=== PATIENT | female | born 1940 | race Caucasian/White ===

== ENCOUNTER 2021-12-02 11:53 | Inpatient (IN) ==
[2021-12-02 13:07] LABS: Basophils # 0.1 K/mcL (0.0-0.2); Basophils % 0.6 %; Eosinophils # 0.2 K/mcL (0.0-0.6); Eosinophils % 1.8 %; Hematocrit 33.6 % (35.3-44.9); Hemoglobin 10.5 g/dL (11.5-15.4); Immature Granulocytes % 0.8 % (0-4); Lymphocytes % 10.2 %; Mean Corpuscular HGB Conc 31.3 g/dL (31.6-35.5); Mean Corpuscular Hemoglobin 29.2 pg (28.0-33.3); Mean Corpuscular Volume 93.3 fL (83.0-100.0); Mean Platelet Volume 10.9 fL (9.4-12.4); Monocytes # 0.8 K/mcL (0.0-1.3); Monocytes % 7.6 %; Neutrophils # 7.9 K/mcL (1.6-8.9); Platelet Count 329 K/mcL (140-400); Red Cell Distribution Width 13.9 % (11.5-14.5)
[2021-12-02 13:16] LABS: Bilirubin,Urine Negative (Negative); Blood,Urine Large (Negative); Clarity,Urine Turbid (Clear); Glucose,Urine (UA) Normal (Normal); Ketones,Urine Negative (Negative); Leukocyte Esterase,Urine Large (Negative); Nitrite,Urine Positive (Negative); Protein,Urine 100 mg/dL (Neg-Trace); Urobilinogen,Urine Normal (Normal)
[2021-12-02 13:16] LABS: INR 1.2; Prothrombin Time 13.5 Seconds (9.4-12.1)
[2021-12-02 13:26] LABS: Troponin I < 0.03 ng/mL (< 0.04)
[2021-12-02 13:27] LABS: Color,Urine Light Yellow (Yellow)
[2021-12-02 13:27] LABS: Alanine Aminotransferase 90 Units/L (7-52); Albumin 2.5 g/dL (3.5-5.7); Albumin/Globulin Ratio 0.7 (1.1-2.2); Alkaline Phosphatase 126 Units/L (34-104); Aspartate Amino Transferase 101 Units/L (13-39); BUN/Creatinine Ratio 24 (6-26); Bilirubin,Total 0.6 mg/dL (0.3-1.0); Blood Urea Nitrogen 25 mg/dL (8-23); Calcium 8.3 mg/dL (8.6-10.3); Carbon Dioxide 27 mEq/L (23-29); Chloride 107 mEq/L (98-107); Globulin 3.8 g/dL (2.4-3.5); Glucose 202 mg/dL (70-105); Osmolality,Calculated 302 (280-300); Potassium 4.4 mEq/L (3.5-5.1); Sodium 141 mEq/L (136-145); Total Protein 6.3 g/dL (6.4-8.9); eGFR For African Americans > 60 (> 60); eGFR For Non-African Americans 51 (> 60)
[2021-12-02 13:31] LABS: Bacteria,Urine Many per hpf (None-Few); Squamous Epithelial Cell,Urine Few per hpf (None-Few)
[2021-12-02 13:40] LABS: Thyroid Stimulating Hormone 1.718 mcIU/mL (0.340-5.600)
[2021-12-02] MEDS ORDERED: Mag Hydrox/Al Hydrox/Simeth 30 ML UDC PO PRN (16:10)
[2021-12-02] MEDS ORDERED: Ondansetron 4 MG/2 ML VIAL IVP PRN (16:10)
[2021-12-02] MEDS ORDERED: Naloxone 0.4 MG/ML INJ IVP PRN (16:10)
[2021-12-02] MEDS ORDERED: MOM Conc 10 ML UD.LIQ PO PRN (16:10)
[2021-12-02] MEDS ORDERED: 0.9 % Sodium Chloride 1,000 ML IVC SCH (16:30)
[2021-12-02] MEDS: QUEtiapine Fumarate 100 MG TABLET PO SCH (22:01)
[2021-12-03 08:26] LABS: Basophils % 0.4 %; Eosinophils # 0.3 K/mcL (0.0-0.6); Eosinophils % 2.8 %; Hematocrit 29.9 % (35.3-44.9); Hemoglobin 9.6 g/dL (11.5-15.4); Immature Granulocytes % 0.6 % (0-4); Lymphocytes # 1.7 K/mcL (0.6-4.6); Lymphocytes % 18.3 %; Mean Corpuscular HGB Conc 32.1 g/dL (31.6-35.5); Mean Corpuscular Hemoglobin 29.8 pg (28.0-33.3); Mean Corpuscular Volume 92.9 fL (83.0-100.0); Mean Platelet Volume 10.7 fL (9.4-12.4); Monocytes % 10.7 %; Neutrophils # 6.3 K/mcL (1.6-8.9); Platelet Count 313 K/mcL (140-400); Red Blood Count 3.22 M/mcL (3.82-4.97); Segmented Neutrophils % 67.2 %; White Blood Count 9.4 K/mcL (4.3-11.1)
[2021-12-03] MEDS: Aspirin Enteric Coated 325 MG Tablet PO SCH (08:39)
[2021-12-03] MEDS: Cyanocobalamin (B-12) 1,000 MCG TABLET PO SCH (08:39)
[2021-12-03] MEDS: amLODIPine 5 MG TABLET PO SCH (08:39)
[2021-12-03 08:50] LABS: Albumin 2.3 g/dL (3.5-5.7); Albumin/Globulin Ratio 0.7 (1.1-2.2); Bilirubin,Total 0.5 mg/dL (0.3-1.0); Calcium 8.2 mg/dL (8.6-10.3); Globulin 3.5 g/dL (2.4-3.5); Potassium 4.3 mEq/L (3.5-5.1); Total Protein 5.8 g/dL (6.4-8.9)
[2021-12-03] MEDS: cefTRIAXone 2,000 MG in 0.9 % Sodium Chloride Mini Bag 100 ML IVPB SCH (14:05)
[2021-12-03] MEDS: carvediloL 25 MG TABLET PO SCH (16:26)
[2021-12-03] MEDS: Melatonin 3 MG TABLET PO PRN (21:39)
[2021-12-03] MEDS: QUEtiapine Fumarate 100 MG TABLET PO SCH (21:39)
[2021-12-03] MEDS: Acetaminophen 325 MG TABLET PO PRN (22:00)
[2021-12-04 05:54] LABS: Hematocrit 28.8 % (35.3-44.9); Hemoglobin 9.1 g/dL (11.5-15.4); Mean Corpuscular HGB Conc 31.6 g/dL (31.6-35.5); Mean Corpuscular Volume 91.7 fL (83.0-100.0); Mean Platelet Volume 10.8 fL (9.4-12.4); Platelet Count 320 K/mcL (140-400); Red Blood Count 3.14 M/mcL (3.82-4.97); White Blood Count 9.3 K/mcL (4.3-11.1)
[2021-12-04 06:15] LABS: BUN/Creatinine Ratio 26 (6-26); Blood Urea Nitrogen 25 mg/dL (8-23); Calcium 8.3 mg/dL (8.6-10.3); Carbon Dioxide 28 mEq/L (23-29); Chloride 109 mEq/L (98-107); Glucose 109 mg/dL (70-105); Osmolality,Calculated 301 (280-300); Potassium 4.4 mEq/L (3.5-5.1); Sodium 143 mEq/L (136-145); eGFR For African Americans > 60 (> 60); eGFR For Non-African Americans 56 (> 60)
[2021-12-04] MEDS: *HR* Enoxaparin 40 MG/0.4 ML SYRINGE SQ SCH (06:33)
[2021-12-04] MEDS: carvediloL 25 MG TABLET PO SCH ×3 (10:08→18:56)
[2021-12-04] MEDS: lisinopriL 20 MG TABLET PO SCH (10:08)
[2021-12-04] MEDS: Aspirin Enteric Coated 325 MG Tablet PO SCH (10:08)
[2021-12-04] MEDS: Cyanocobalamin (B-12) 1,000 MCG TABLET PO SCH (10:10)
[2021-12-04] MEDS: amLODIPine 5 MG TABLET PO SCH (10:10)
[2021-12-04] MEDS: Furosemide 20 MG TABLET PO SCH (10:10)
[2021-12-04] MEDS: cefTRIAXone 2,000 MG in 0.9 % Sodium Chloride Mini Bag 100 ML IVPB SCH (14:28)
[2021-12-04] MEDS: Melatonin 3 MG TABLET PO PRN (20:48)
[2021-12-04] MEDS: QUEtiapine Fumarate 100 MG TABLET PO SCH (20:48)
[2021-12-05] MEDS: *HR* Enoxaparin 40 MG/0.4 ML SYRINGE SQ SCH (05:32)
[2021-12-05] MEDS: Aspirin Enteric Coated 325 MG Tablet PO SCH (08:54)
[2021-12-05] MEDS: Furosemide 20 MG TABLET PO SCH (08:55)
[2021-12-05] MEDS: Cyanocobalamin (B-12) 1,000 MCG TABLET PO SCH (08:55)
[2021-12-05] MEDS: lisinopriL 20 MG TABLET PO SCH (08:55)
[2021-12-05] MEDS: amLODIPine 5 MG TABLET PO SCH (08:55)
[2021-12-05] MEDS: carvediloL 25 MG TABLET PO SCH ×2 (08:55→17:13)
[2021-12-05] MEDS: cefTRIAXone 2,000 MG in 0.9 % Sodium Chloride Mini Bag 100 ML IVPB SCH (14:20)
[2021-12-05] MEDS: QUEtiapine Fumarate 100 MG TABLET PO SCH (21:44)
[2021-12-05] MEDS: Acetaminophen 325 MG TABLET PO PRN (21:44)
[2021-12-05] MEDS: Melatonin 3 MG TABLET PO PRN (21:44)
[2021-12-06] MEDS: *HR* Enoxaparin 40 MG/0.4 ML SYRINGE SQ SCH (07:01)
[2021-12-06 07:12] VITALS: BP 120/70; PULSE 56; RESP 17; TEMP 97.5; O2SAT 97
[2021-12-06 07:12] LABS: Hematocrit 28.2 % (35.3-44.9); Hemoglobin 8.9 g/dL (11.5-15.4); Mean Corpuscular HGB Conc 31.6 g/dL (31.6-35.5); Mean Corpuscular Hemoglobin 28.8 pg (28.0-33.3); Mean Corpuscular Volume 91.3 fL (83.0-100.0); Mean Platelet Volume 10.5 fL (9.4-12.4); Platelet Count 317 K/mcL (140-400); Red Blood Count 3.09 M/mcL (3.82-4.97); Red Cell Distribution Width 13.9 % (11.5-14.5); White Blood Count 7.3 K/mcL (4.3-11.1)
[2021-12-06 07:32] LABS: BUN/Creatinine Ratio 31 (6-26); Blood Urea Nitrogen 24 mg/dL (8-23); Calcium 8.2 mg/dL (8.6-10.3); Carbon Dioxide 28 mEq/L (23-29); Chloride 106 mEq/L (98-107); Glucose 107 mg/dL (70-105); Osmolality,Calculated 295 (280-300); Potassium 4.1 mEq/L (3.5-5.1); Sodium 140 mEq/L (136-145); eGFR For African Americans > 60 (> 60); eGFR For Non-African Americans > 60 (> 60)
[2021-12-06] MEDS: carvediloL 25 MG TABLET PO SCH (09:17)
[2021-12-06] MEDS: Aspirin Enteric Coated 325 MG Tablet PO SCH (09:17)
[2021-12-06] MEDS: lisinopriL 20 MG TABLET PO SCH (09:17)
[2021-12-06] MEDS: amLODIPine 5 MG TABLET PO SCH (09:17)
[2021-12-06] MEDS: Cyanocobalamin (B-12) 1,000 MCG TABLET PO SCH (09:17)
[2021-12-06] MEDS: Furosemide 20 MG TABLET PO SCH (09:17)
[2021-12-06] MEDS: cefTRIAXone 2,000 MG in 0.9 % Sodium Chloride Mini Bag 100 ML IVPB SCH (14:20)
== END 2021-12-06 15:10 | disposition other institution (70) | DRG 689 ==
LOC: INPPIK 11:53 → EMEROOPIK 11:53 → INPPIK 20:58
PROVIDERS: ADMIT Internal Medicine; ATTEND Internal Medicine

== ENCOUNTER 2021-12-06 11:25 | Inpatient (IN) ==
[2021-12-06] MEDS: carvediloL 25 MG TABLET PO SCH (18:39)
[2021-12-06] MEDS: QUEtiapine Fumarate 25 MG TABLET PO SCH (20:21)
[2021-12-06] MEDS: cephALEXin 500 MG CAPSULE PO SCH (20:21)
[2021-12-07] MEDS: *HR* Enoxaparin 40 MG/0.4 ML SYRINGE SQ SCH (06:04)
[2021-12-07 06:37] LABS: Basophils # 0.1 K/mcL (0.0-0.2); Basophils % 0.6 %; Eosinophils # 0.3 K/mcL (0.0-0.6); Eosinophils % 3.9 %; Hematocrit 29.6 % (35.3-44.9); Hemoglobin 9.2 g/dL (11.5-15.4); Immature Granulocytes % 1.1 % (0-4); Lymphocytes # 1.9 K/mcL (0.6-4.6); Lymphocytes % 23.8 %; Mean Corpuscular HGB Conc 31.1 g/dL (31.6-35.5); Mean Corpuscular Hemoglobin 28.6 pg (28.0-33.3); Mean Corpuscular Volume 91.9 fL (83.0-100.0); Mean Platelet Volume 10.5 fL (9.4-12.4); Monocytes # 0.6 K/mcL (0.0-1.3); Monocytes % 7.9 %; Neutrophils # 4.9 K/mcL (1.6-8.9); Platelet Count 340 K/mcL (140-400); Red Blood Count 3.22 M/mcL (3.82-4.97); Red Cell Distribution Width 13.8 % (11.5-14.5); Segmented Neutrophils % 62.7 %; White Blood Count 7.9 K/mcL (4.3-11.1)
[2021-12-07 06:58] LABS: BUN/Creatinine Ratio 29 (6-26); Blood Urea Nitrogen 23 mg/dL (8-23); Calcium 8.6 mg/dL (8.6-10.3); Carbon Dioxide 28 mEq/L (23-29); Chloride 106 mEq/L (98-107); Glucose 100 mg/dL (70-105); Osmolality,Calculated 296 (280-300); Potassium 4.4 mEq/L (3.5-5.1); Sodium 141 mEq/L (136-145); eGFR For African Americans > 60 (> 60); eGFR For Non-African Americans > 60 (> 60)
[2021-12-07] MEDS: cephALEXin 500 MG CAPSULE PO SCH ×3 (09:27→20:26)
[2021-12-07] MEDS: amLODIPine 5 MG TABLET PO SCH (09:27)
[2021-12-07] MEDS: Cyanocobalamin (B-12) 1,000 MCG TABLET PO SCH (09:27)
[2021-12-07] MEDS: carvediloL 25 MG TABLET PO SCH ×2 (09:27→17:43)
[2021-12-07] MEDS: Aspirin Enteric Coated 325 MG Tablet PO SCH (09:27)
[2021-12-07] MEDS: Furosemide 20 MG TABLET PO SCH (09:28)
[2021-12-07] MEDS: lisinopriL 20 MG TABLET PO SCH (09:28)
[2021-12-07] MEDS: QUEtiapine Fumarate 25 MG TABLET PO SCH (20:26)
[2021-12-08] MEDS: carvediloL 25 MG TABLET PO SCH ×2 (10:57→17:24)
[2021-12-08] MEDS: cephALEXin 500 MG CAPSULE PO SCH ×3 (10:57→19:48)
[2021-12-08] MEDS: amLODIPine 5 MG TABLET PO SCH (10:57)
[2021-12-08] MEDS: Aspirin Enteric Coated 325 MG Tablet PO SCH (10:57)
[2021-12-08] MEDS: Furosemide 20 MG TABLET PO SCH (10:57)
[2021-12-08] MEDS: lisinopriL 20 MG TABLET PO SCH (10:57)
[2021-12-08] MEDS: Cyanocobalamin (B-12) 1,000 MCG TABLET PO SCH (10:57)
[2021-12-08] MEDS: *HR* Enoxaparin 40 MG/0.4 ML SYRINGE SQ SCH (10:58)
[2021-12-08] MEDS: QUEtiapine Fumarate 25 MG TABLET PO SCH (19:48)
[2021-12-08] MEDS: Melatonin 3 MG TABLET PO SCH (20:05)
[2021-12-08] MEDS: Sennosides/Docusate Sodium TABLET PO SCH (20:05)
[2021-12-09] MEDS: lisinopriL 20 MG TABLET PO SCH (09:47)
[2021-12-09] MEDS: *HR* Enoxaparin 40 MG/0.4 ML SYRINGE SQ SCH (09:47)
[2021-12-09] MEDS: amLODIPine 5 MG TABLET PO SCH (09:47)
[2021-12-09] MEDS: Aspirin Enteric Coated 325 MG Tablet PO SCH (09:48)
[2021-12-09] MEDS: carvediloL 25 MG TABLET PO SCH ×2 (09:48→15:15)
[2021-12-09] MEDS: Furosemide 20 MG TABLET PO SCH (09:48)
[2021-12-09] MEDS: cephALEXin 500 MG CAPSULE PO SCH ×4 (09:48→22:17)
[2021-12-09] MEDS: Cyanocobalamin (B-12) 1,000 MCG TABLET PO SCH (09:48)
[2021-12-09] MEDS: Sennosides/Docusate Sodium TABLET PO SCH ×2 (09:48→22:10)
[2021-12-09] MEDS: QUEtiapine Fumarate 25 MG TABLET PO SCH ×2 (22:08→22:22)
[2021-12-09] MEDS: Melatonin 3 MG TABLET PO SCH ×2 (22:10→22:22)
[2021-12-10] MEDS: *HR* Enoxaparin 40 MG/0.4 ML SYRINGE SQ SCH (10:43)
[2021-12-10] MEDS: Sennosides/Docusate Sodium TABLET PO SCH ×2 (10:43→20:00)
[2021-12-10] MEDS: carvediloL 25 MG TABLET PO SCH ×2 (10:44→18:36)
[2021-12-10] MEDS: Cyanocobalamin (B-12) 1,000 MCG TABLET PO SCH (10:44)
[2021-12-10] MEDS: lisinopriL 20 MG TABLET PO SCH (10:44)
[2021-12-10] MEDS: Aspirin Enteric Coated 325 MG Tablet PO SCH (10:44)
[2021-12-10] MEDS: amLODIPine 5 MG TABLET PO SCH (10:44)
[2021-12-10] MEDS: Furosemide 20 MG TABLET PO SCH (10:44)
[2021-12-10] MEDS: Melatonin 3 MG TABLET PO SCH (20:00)
[2021-12-10] MEDS: QUEtiapine Fumarate 25 MG TABLET PO SCH (20:00)
[2021-12-11] MEDS: carvediloL 25 MG TABLET PO SCH ×2 (08:52→16:42)
[2021-12-11] MEDS: lisinopriL 20 MG TABLET PO SCH (08:52)
[2021-12-11] MEDS: Sennosides/Docusate Sodium TABLET PO SCH ×2 (08:52→21:25)
[2021-12-11] MEDS: amLODIPine 5 MG TABLET PO SCH (08:52)
[2021-12-11] MEDS: *HR* Enoxaparin 40 MG/0.4 ML SYRINGE SQ SCH (08:53)
[2021-12-11] MEDS: Furosemide 20 MG TABLET PO SCH (08:53)
[2021-12-11] MEDS: Aspirin Enteric Coated 325 MG Tablet PO SCH (08:53)
[2021-12-11] MEDS: Cyanocobalamin (B-12) 1,000 MCG TABLET PO SCH (08:53)
[2021-12-11] MEDS ORDERED: *HR* Dextrose 50 % in Water (Syg) 50 ML SYRINGE IVP PRN (09:42)
[2021-12-11] MEDS ORDERED: Dextrose Gel 15 GM/37.5 ML TUBE PO PRN ×2 (09:42)
[2021-12-11] MEDS ORDERED: D5% in Water 1,000 ML IVC PRN (09:42)
[2021-12-11] MEDS: *HR* HYDROcodone/Acet 5/325 mg TABLET PO PRN (11:03)
[2021-12-11 11:33] LABS: Adenovirus Not Detected (Not Detect); Bordetella Pertussis Not Detected (Not Detect); Chlamydophila pneumoniae Not Detected (Not Detect); Coronavirus 229E Not Detected (Not Detect); Coronavirus HKU1 Not Detected (Not Detect); Coronavirus NL63 Not Detected (Not Detect); Coronavirus OC43 Not Detected (Not Detect); Human Metapneumovirus Not Detected (Not Detect); Human Rhinovirus/Enterovirus Not Detected (Not Detect); Influenza A Subtype 2009 H1 Not Detected (Not Detect); Influenza B Not Detected (Not Detect); Mycoplasma pneumoniae Not Detected (Not Detect); Parainfluenza Virus 1 Not Detected (Not Detect); Parainfluenza Virus 2 Not Detected (Not Detect); Parainfluenza Virus 3 Not Detected (Not Detect); Parainfluenza Virus 4 Not Detected (Not Detect); Respiratory Syncytial Virus Not Detected (Not Detect); SARS-CoV-2 Not Detected (Not Detect)
[2021-12-11] MEDS: Insulin LISPRO 300 UNITS/3 ML VIAL SUBQ SCH ×3 (11:45→21:26)
[2021-12-11] MEDS: Acetaminophen 325 MG TABLET PO PRN (16:43)
[2021-12-11] MEDS: QUEtiapine Fumarate 25 MG TABLET PO SCH ×2 (21:26→23:32)
[2021-12-11] MEDS: Melatonin 3 MG TABLET PO SCH ×2 (21:26→23:33)
[2021-12-12] MEDS: *HR* Enoxaparin 40 MG/0.4 ML SYRINGE SQ SCH (06:31)
[2021-12-12] MEDS: Insulin LISPRO 300 UNITS/3 ML VIAL SUBQ SCH ×4 (07:08→22:36)
[2021-12-12] MEDS: Cyanocobalamin (B-12) 1,000 MCG TABLET PO SCH (08:38)
[2021-12-12] MEDS: lisinopriL 20 MG TABLET PO SCH (08:38)
[2021-12-12] MEDS: Furosemide 20 MG TABLET PO SCH (08:38)
[2021-12-12] MEDS: Aspirin Enteric Coated 325 MG Tablet PO SCH (08:38)
[2021-12-12] MEDS: Sennosides/Docusate Sodium TABLET PO SCH ×2 (08:38→20:36)
[2021-12-12] MEDS: amLODIPine 5 MG TABLET PO SCH (08:38)
[2021-12-12] MEDS: *HR* HYDROcodone/Acet 5/325 mg TABLET PO PRN (08:38)
[2021-12-12] MEDS: carvediloL 25 MG TABLET PO SCH ×2 (08:38→17:41)
[2021-12-12] MEDS: Melatonin 3 MG TABLET PO SCH (20:36)
[2021-12-12] MEDS: QUEtiapine Fumarate 25 MG TABLET PO SCH (20:36)
[2021-12-13] MEDS: *HR* Enoxaparin 40 MG/0.4 ML SYRINGE SQ SCH (06:26)
[2021-12-13] MEDS: Aspirin Enteric Coated 325 MG Tablet PO SCH (09:54)
[2021-12-13] MEDS: Cyanocobalamin (B-12) 1,000 MCG TABLET PO SCH (09:55)
[2021-12-13] MEDS: amLODIPine 5 MG TABLET PO SCH (09:55)
[2021-12-13] MEDS: Sennosides/Docusate Sodium TABLET PO SCH ×2 (09:55→20:13)
[2021-12-13] MEDS: carvediloL 25 MG TABLET PO SCH ×2 (09:55→17:58)
[2021-12-13] MEDS: lisinopriL 20 MG TABLET PO SCH (09:55)
[2021-12-13] MEDS: Furosemide 20 MG TABLET PO SCH (09:56)
[2021-12-13] MEDS: Insulin LISPRO 300 UNITS/3 ML VIAL SUBQ SCH (11:02)
[2021-12-13] MEDS: QUEtiapine Fumarate 25 MG TABLET PO SCH (20:05)
[2021-12-13] MEDS: Melatonin 3 MG TABLET PO SCH (20:05)
[2021-12-14] MEDS: *HR* Enoxaparin 40 MG/0.4 ML SYRINGE SQ SCH (06:34)
[2021-12-14] MEDS: Cyanocobalamin (B-12) 1,000 MCG TABLET PO SCH (09:30)
[2021-12-14] MEDS: carvediloL 25 MG TABLET PO SCH ×2 (09:30→18:40)
[2021-12-14] MEDS: lisinopriL 20 MG TABLET PO SCH (09:30)
[2021-12-14] MEDS: Furosemide 20 MG TABLET PO SCH (09:30)
[2021-12-14] MEDS: Sennosides/Docusate Sodium TABLET PO SCH ×3 (09:30→20:56)
[2021-12-14] MEDS: Aspirin Enteric Coated 325 MG Tablet PO SCH (09:30)
[2021-12-14] MEDS: amLODIPine 5 MG TABLET PO SCH (09:30)
[2021-12-14] MEDS: Melatonin 3 MG TABLET PO SCH (20:46)
[2021-12-14] MEDS: QUEtiapine Fumarate 25 MG TABLET PO SCH (20:46)
[2021-12-15] MEDS: *HR* Enoxaparin 40 MG/0.4 ML SYRINGE SQ SCH (05:19)
[2021-12-15 07:04] LABS: Hematocrit 26.9 % (35.3-44.9); Hemoglobin 8.4 g/dL (11.5-15.4); Mean Corpuscular HGB Conc 31.2 g/dL (31.6-35.5); Mean Corpuscular Hemoglobin 28.7 pg (28.0-33.3); Mean Corpuscular Volume 91.8 fL (83.0-100.0); Mean Platelet Volume 10.4 fL (9.4-12.4); Platelet Count 324 K/mcL (140-400); Red Blood Count 2.93 M/mcL (3.82-4.97)
[2021-12-15 07:26] LABS: BUN/Creatinine Ratio 31 (6-26); Blood Urea Nitrogen 24 mg/dL (8-23); Calcium 8.4 mg/dL (8.6-10.3); Carbon Dioxide 28 mEq/L (23-29); Chloride 109 mEq/L (98-107); Glucose 98 mg/dL (70-105); Osmolality,Calculated 300 (280-300); Sodium 143 mEq/L (136-145); eGFR For African Americans > 60 (> 60); eGFR For Non-African Americans > 60 (> 60)
[2021-12-15] MEDS: Aspirin Enteric Coated 325 MG Tablet PO SCH (10:00)
[2021-12-15] MEDS: Cyanocobalamin (B-12) 1,000 MCG TABLET PO SCH (10:00)
[2021-12-15] MEDS: Furosemide 20 MG TABLET PO SCH (10:01)
[2021-12-15] MEDS: carvediloL 25 MG TABLET PO SCH ×2 (10:01→16:50)
[2021-12-15] MEDS: Sennosides/Docusate Sodium TABLET PO SCH ×2 (10:01→20:33)
[2021-12-15] MEDS: amLODIPine 5 MG TABLET PO SCH (10:02)
[2021-12-15] MEDS: lisinopriL 20 MG TABLET PO SCH (10:02)
[2021-12-15] MEDS: QUEtiapine Fumarate 25 MG TABLET PO SCH (20:32)
[2021-12-15] MEDS: Melatonin 3 MG TABLET PO SCH (20:32)
[2021-12-16] MEDS: *HR* Enoxaparin 40 MG/0.4 ML SYRINGE SQ SCH (06:25)
[2021-12-16] MEDS: Furosemide 20 MG TABLET PO SCH (08:49)
[2021-12-16] MEDS: Aspirin Enteric Coated 325 MG Tablet PO SCH (08:49)
[2021-12-16] MEDS: carvediloL 25 MG TABLET PO SCH ×2 (08:49→17:10)
[2021-12-16] MEDS: amLODIPine 5 MG TABLET PO SCH (08:49)
[2021-12-16] MEDS: lisinopriL 20 MG TABLET PO SCH (08:49)
[2021-12-16] MEDS: Sennosides/Docusate Sodium TABLET PO SCH ×2 (08:49→19:49)
[2021-12-16] MEDS: Cyanocobalamin (B-12) 1,000 MCG TABLET PO SCH (08:49)
[2021-12-16] MEDS: Melatonin 3 MG TABLET PO SCH (19:49)
[2021-12-16] MEDS: QUEtiapine Fumarate 25 MG TABLET PO SCH (19:49)
[2021-12-17] MEDS: *HR* Enoxaparin 40 MG/0.4 ML SYRINGE SQ SCH (05:48)
[2021-12-17] MEDS: carvediloL 25 MG TABLET PO SCH ×2 (08:58→17:26)
[2021-12-17] MEDS: Furosemide 20 MG TABLET PO SCH (08:59)
[2021-12-17] MEDS: Cyanocobalamin (B-12) 1,000 MCG TABLET PO SCH (08:59)
[2021-12-17] MEDS: Sennosides/Docusate Sodium TABLET PO SCH ×2 (08:59→19:38)
[2021-12-17] MEDS: amLODIPine 5 MG TABLET PO SCH (08:59)
[2021-12-17] MEDS: Aspirin Enteric Coated 325 MG Tablet PO SCH (08:59)
[2021-12-17] MEDS: lisinopriL 20 MG TABLET PO SCH (08:59)
[2021-12-17] MEDS: QUEtiapine Fumarate 25 MG TABLET PO SCH (19:39)
[2021-12-17] MEDS: Acetaminophen 325 MG TABLET PO PRN (19:39)
[2021-12-17] MEDS: Melatonin 3 MG TABLET PO SCH (19:39)
[2021-12-18] MEDS: *HR* Enoxaparin 40 MG/0.4 ML SYRINGE SQ SCH (05:10)
[2021-12-18] MEDS: Acetaminophen 325 MG TABLET PO PRN ×2 (05:15→19:54)
[2021-12-18] MEDS: Aspirin Enteric Coated 325 MG Tablet PO SCH (08:21)
[2021-12-18] MEDS: Furosemide 20 MG TABLET PO SCH (08:22)
[2021-12-18] MEDS: Cyanocobalamin (B-12) 1,000 MCG TABLET PO SCH (08:22)
[2021-12-18] MEDS: carvediloL 25 MG TABLET PO SCH ×2 (08:22→17:10)
[2021-12-18] MEDS: amLODIPine 5 MG TABLET PO SCH (08:22)
[2021-12-18] MEDS: lisinopriL 20 MG TABLET PO SCH (08:22)
[2021-12-18] MEDS: Sennosides/Docusate Sodium TABLET PO SCH ×2 (08:22→19:55)
[2021-12-18] MEDS: QUEtiapine Fumarate 25 MG TABLET PO SCH (19:54)
[2021-12-18] MEDS: Melatonin 3 MG TABLET PO SCH (19:55)
[2021-12-19] MEDS: *HR* Enoxaparin 40 MG/0.4 ML SYRINGE SQ SCH (05:36)
[2021-12-19 06:46] VITALS: O2SAT 98
[2021-12-19] MEDS: carvediloL 25 MG TABLET PO SCH ×2 (10:24→17:37)
[2021-12-19] MEDS: Aspirin Enteric Coated 325 MG Tablet PO SCH (10:24)
[2021-12-19] MEDS: Sennosides/Docusate Sodium TABLET PO SCH ×2 (10:25→19:48)
[2021-12-19] MEDS: lisinopriL 20 MG TABLET PO SCH (10:25)
[2021-12-19] MEDS: amLODIPine 5 MG TABLET PO SCH (10:25)
[2021-12-19] MEDS: Furosemide 20 MG TABLET PO SCH (10:25)
[2021-12-19] MEDS: Cyanocobalamin (B-12) 1,000 MCG TABLET PO SCH (10:31)
[2021-12-19] MEDS: Melatonin 3 MG TABLET PO SCH (19:47)
[2021-12-19] MEDS: QUEtiapine Fumarate 25 MG TABLET PO SCH (19:48)
[2021-12-20] MEDS: *HR* Enoxaparin 40 MG/0.4 ML SYRINGE SQ SCH (05:53)
[2021-12-20] MEDS: lisinopriL 20 MG TABLET PO SCH (08:41)
[2021-12-20] MEDS: Aspirin Enteric Coated 325 MG Tablet PO SCH (08:41)
[2021-12-20] MEDS: Cyanocobalamin (B-12) 1,000 MCG TABLET PO SCH (08:42)
[2021-12-20] MEDS: Furosemide 20 MG TABLET PO SCH (08:42)
[2021-12-20] MEDS: amLODIPine 5 MG TABLET PO SCH (08:42)
[2021-12-20] MEDS: carvediloL 25 MG TABLET PO SCH ×2 (08:42→17:27)
[2021-12-20] MEDS: Sennosides/Docusate Sodium TABLET PO SCH ×2 (08:42→21:11)
[2021-12-20] MEDS: QUEtiapine Fumarate 25 MG TABLET PO SCH (21:11)
[2021-12-20] MEDS: Melatonin 3 MG TABLET PO SCH (21:12)
[2021-12-21] MEDS: *HR* Enoxaparin 40 MG/0.4 ML SYRINGE SQ SCH (05:37)
[2021-12-21 06:55] VITALS: BP 122/68; PULSE 67; RESP 16; TEMP 98.6
[2021-12-21] MEDS: Cyanocobalamin (B-12) 1,000 MCG TABLET PO SCH (08:58)
[2021-12-21] MEDS: Sennosides/Docusate Sodium TABLET PO SCH (08:58)
[2021-12-21] MEDS: Furosemide 20 MG TABLET PO SCH (08:58)
[2021-12-21] MEDS: Aspirin Enteric Coated 325 MG Tablet PO SCH (08:58)
[2021-12-21] MEDS: carvediloL 25 MG TABLET PO SCH (08:58)
[2021-12-21] MEDS: amLODIPine 5 MG TABLET PO SCH (08:58)
[2021-12-21] MEDS: lisinopriL 20 MG TABLET PO SCH (08:59)
== END 2021-12-21 12:30 | disposition hospice, home (50) | DRG 689 ==
LOC: INPPIK 15:13
PROVIDERS: ADMIT Family Medicine; ATTEND Family Medicine